=== PATIENT | female | born 1985 | race African-American/Black ===

== ENCOUNTER 2017-03-10 10:56 | Emergency (ER) | payer OTHER ==
[2017-03-10 09:50] LABS: URINE SOURCE CLEAN CATCH
[2017-03-10 09:54] LABS: URINE APPEARANCE CLEAR; URINE BILIRUBIN NEG (NEG); URINE BLOOD TRACE (NEG); URINE COLOR YELLOW; URINE GLUCOSE NEG (NEG); URINE KETONE TRACE (NEG); URINE LEUKOCYTE ESTERASE NEG (NEG); URINE NITRATE NEG (NEG); URINE PROTEIN NEG (NEG); URINE SPECIFIC GRAVITY 1.026 (1.003-1.035)
[2017-03-10 09:56] LABS: CULTURE INDICATED? NO; U HYALINE CASTS AUWI 0-2 /[LPF]; URBCS1 AUWI 0-2 /[HPF] (0-2); URINE BACTERIA AUWI NEG (NEGATIVE); URINE SQUAMOUS EPITHELIAL CELL NONE SEEN /[HPF]; UWBCS1 AUWI 0-2 (0-5)
[~2017-03-10 10:56] MED LIST: ALBUTEROL17 GM INH; ATARAX PO; AZITHROMYCIN250 MG PO; DIFLUCAN PO; FLAGYL PO; PRENATAL1 TA1 PO; TESSALON200 MG PO
[2017-03-11 17:47] LABS: CHLAMYDIA TRACH Not Detected (Not Detected); N GONOR Not Detected (Not Detected)
== END 2017-03-10 11:57 | disposition home or self-care (01) ==
LOC: CFTX 10:56
PROVIDERS: Emergency Medicine; Nurse Practitioner
DX: N76.0 Acute vaginitis (principal); K21.9 Gastro-esophageal reflux disease without esophagitis; Z98.51 Tubal ligation status
CPT/HCPCS: 81003; 84703; 87491; 87591; 87808; 87905; 99283; 99284

== ENCOUNTER 2017-07-13 10:24 | Emergency (ER) | payer OTHER ==
[~2017-07-13] VITALS: Ht 175.3 cm; Wt 120.2 kg
--- NOTE | ~2017-07-13 | EKG ---
PATIENT: IS[facility] POTTS UNIT #: [id number] Ventricular Rate: 65 BPM Atrial Rate: 65 BPM P-R Interval: 180 ms QRS Duration: 72 ms Q-T Interval: 410 ms QTC Calculation(Bezet): 426 ms P [place]: 35 degrees Calculated R [place]: 26 degrees Diagnosis Line: Sinus rhythm with Premature supraventricular Diagnosis Line: complexes Diagnosis Line: Nonspecific T wave abnormality Diagnosis Line: Abnormal ECG Diagnosis Line: No previous ECGs available Diagnosis Line: Confirmed by SOMMER BALLARD MD ([id number]) on 07/13/2017 Diagnosis Line: 6:05:43 PM INTERPRETING MD: ELIO GRAF
[2017-07-13 11:11] LABS: URINE SOURCE CLEAN CATCH
[2017-07-13 11:21] LABS: URINE APPEARANCE CLEAR; URINE BILIRUBIN NEG (NEG); URINE BLOOD TRACE (NEG); URINE COLOR YELLOW; URINE GLUCOSE NEG (NEG); URINE KETONE NEG (NEG); URINE LEUKOCYTE ESTERASE NEG (NEG); URINE NITRATE NEG (NEG); URINE PH 6.5 (5-8); URINE PROTEIN NEG (NEG); URINE SPECIFIC GRAVITY 1.024 (1.003-1.035); URINE UROBILINOGEN 0.2 MG/DL (NEG)
[2017-07-13 11:21] LABS: BASOPHIL% 0.6 % (0-2.5); EOSINOPHIL# 0.1 X10e3 (0-0.7); EOSINOPHIL% 1.6 % (0.0-7.0); HEMATOCRIT 29.6 % (35.0-45.0); HEMOGLOBIN 9.4 gm/dL (12.0-16.0); LYMPHOCYTE# 2.3 X10e3 (1.0-3.5); LYMPHOCYTE% 33.1 % (17.0-45.0); MEAN CELL VOLUME 67.2 FL (83-96); MEAN CORPUSCULAR HEMOGLOBIN 21.4 PG (28-34); MEAN CORPUSCULAR HGB CONC 31.8 g/dL (30-36); MEAN PLATELET VOLUME 7.1 FL (6.5-11.5); MONOCYTE# 0.4 X10e3 (0-1.0); MONOCYTE% 5.8 % (3.0-12.0); NEUTROPHIL# 4.1 X10e3 (1.5-7.1); NEUTROPHIL% 58.9 % (40-75); PLATELET COUNT 302 X10e3 (140-420); RED CELL DISTRIBUTION WIDTH 21.2 % (11.0-15.5)
[2017-07-13 11:24] LABS: URINE BACTERIA AUWI NEG (NEGATIVE); URINE SQUAMOUS EPITHELIAL CELL NONE SEEN /[HPF]; UWBCS1 AUWI 0-2 (0-5)
[2017-07-13 11:27] LABS: DIFF IND NO
[2017-07-13 11:34] LABS: CULTURE INDICATED? NO
[2017-07-13 11:53] LABS: ALBUMIN SERUM 3.6 g/dL (3.5-5.0); BILIRUBIN,TOTAL 0.3 mg/dL (0.2-2.0); BUN/CREATININE RATIO 15.71; CALCIUM SERUM 8.8 mg/dL (8.4-10.2); CREATININE SERUM 0.7 mg/dL (0.6-1.4); GLOM FILT RATE Estimated 134.8 mL/min (>60); POTASSIUM 3.5 mmol/L (3.5-5.1); PROTEIN TOTAL SERUM 7.4 g/dL (6.0-8.3)
[2017-07-16 11:40] LABS: CHLAMYDIA TRACH Not Detected (Not Detected); N GONOR Not Detected (Not Detected)
== END 2017-07-13 12:30 | disposition home or self-care (01) ==
LOC: CFTX 10:24 → CED 10:24 → CFTX 11:45
PROVIDERS: Nurse Practitioner
DX: N76.0 Acute vaginitis (principal); D64.9 Anemia, unspecified; Z98.51 Tubal ligation status
CPT/HCPCS: 36415; 80053; 81003; 84703; 85025; 87491; 87591; 87808; 87905; 93005; 99284